=== PATIENT | male | born 1940 | race Caucasian/White ===

== ENCOUNTER 2017-01-16 19:01 | Observation (INO) | payer OTHER, BC ==
[~2017-01-16] VITALS: Ht 177.8 cm; Wt 112.5 kg
[~2017-01-16 19:01] MED LIST: ADULT LOW DOSE81 M1 PO; ADVIL,NUPRIN,M200 MG PO; ALLEGRA ALLERG180 MG PO; ALLEGRA180 MG PO; AMLODIPINE BESYL5 MG PO; ASPIR 8181 M1 PO; CIPRO500 MG PO; COLACE100 MG PO; DIOVAN80 MG PO; Ecotrin PO; FISH OIL 1,0001 EAC7 PO; FISH OIL CONC1 EACH PO; GLUCOSAMINE &1 EAC1 PO; GLUCOSAMINE &1 EACH PO; HYDROCHLOROTH12.5 M2 PO; HYDROCHLOROTH12.5 M3 PO; HYDROCHLOROTHIA25 MG PO; ISTALOL5 ML BOTH EYES; ISTALOL5 ML OP; Imdur PO; KADIAN10 MG PO; LOSARTAN POTASS50 MG PO; LOW DOSE ASPIRI81 M2 PO; LUMIGAN 0.50 DROP/2. BOTH EYES; LUMIGAN 0.50 DROP/22 BOTH EYES; Lopressor PO; MEDROL DOSEPAK4 MG PO; MOBIC7.5 MG PO; MULTIVITAMIN1 EAC2 PO; NAPROSYN500 MG PO; NORVASC5 MG PO; Nitrostat,NitroQuick SL; Norvasc PO; PRESERVISION A1 EAC2 PO; PREVACID30 MG PO; PROBIOTIC1 EAC1 PO; PYRIDIUM200 MG PO; Plavix PO; RANITIDINE HCL150 MG PO; SIMVASTATIN20 M1 PO; SIMVASTATIN20 MG PO; TIMOLOL MALEATE15 M1 BOTH EYES; TYLENOL EXTRA500 MG PO; VALIUM5 MG PO; ZOCOR20 MG PO; ZYRTEC10 M3 PO; Zantac PO; Zocor PO
[2017-01-16 19:38] LABS: EOSINOPHIL (%) 2.8 % (0-5); EOSINOPHIL COUNT 0.2 K/uL (0-0.3); HEMATOCRIT 43.9 % (38.0-50.0); IMMATURE GRANULOCYTE (%) 0.3 % (0.0-0.7); INSTRUMENT ABS NEUTROPHIL CT 4.6 K/uL; LYMPHOCYTE COUNT 1.1 K/uL (1.0-2.8); MCH 31.6 PG (29.0-34.0); MCHC 33.7 G/DL (30.0-36.0); MCV 93.8 FL (86-99); MEAN PLAT.VOLUME 10.5 uM^3 (9.0-12.4); MONOCYTE (%) 10.3 % (3-12); MONOCYTE COUNT 0.7 K/uL (0-0.8); NEUTROPHIL (%) 69.4 % (45-76); NEUTROPHIL COUNT 4.6 K/uL (1.8-6.4); PLATELET COUNT 236 K/uL (156-360); RBC DIS.WIDTH-CV 13.2 % (11.8-14.6); RBC DIS.WIDTH-SD 45.5 % (39-53); RED BLOOD COUNT 4.68 M/uL (4.00-5.50); WHITE BLOOD COUNT 6.7 K/uL (4.1-10.2)
[2017-01-16 19:58] LABS: CHLORIDE 101 mEq/L (99-109); SODIUM 138 mEq/L (136-147)
[2017-01-16 20:00] LABS: GLUCOSE 189 mg/dL (70-99)
[2017-01-16 20:01] LABS: ANION GAP 11 MEQ/L (2-14)
[2017-01-16 20:04] LABS: GFR ESTIMATE (CALCULATED) > 59 mL/min/
[2017-01-16 20:05] LABS: UREA NITROGEN (BUN) 19 mg/dL (9-23)
[2017-01-16 20:09] LABS: TROP-I INTERPRETATION NEGATIVE; TROPONIN-I 0.01 ng/mL (0.0-0.30)
[2017-01-16 21:38] LABS: ADD MIUA? YES; BILIRUBIN NEGATIVE; BLOOD MODERATE; COLOR STRAW ((YELLOW)); GLUCOSE (STRIP) >=500; KETONES NEGATIVE; LEUKOCYTES NEGATIVE; NITRITE NEGATIVE; PROTEIN (STRIP) NEGATIVE; SPECIFIC GRAVITY 1.012 (1.000-1.030); UROBILINOGEN 0.2 MG/DL (0.2-1.0)
[2017-01-16 21:40] LABS: BACTERIA NONE SEEN /HPF; EPITHELIAL CELLS RARE /HPF; MUCUS NONE SEEN /LPF; RED BLOOD CELLS TNTC /HPF (0-5); UCUL ADDED? NO; WHITE BLOOD CELLS 0-5 /HPF (0-5)
[2017-01-16] MEDS ORDERED: AMLODIPINE BESY10 MG PO (23:32)
[2017-01-16] MEDS ORDERED: LEVOTHYROXINE25 MCG PO (23:34)
[2017-01-16] MEDS ORDERED: NITROSTAT0.4 MG SL (23:35)
[2017-01-16] MEDS ORDERED: POTASSIUM CITR10 MEQ PO (23:36)
[2017-01-16] MEDS ORDERED: TYLENOL EXTRA500 MG PO (23:37)
[2017-01-16] MEDS ORDERED: LUMIGAN 0.50 DROP/22 BOTH EYES (23:38)
[2017-01-17] MEDS ORDERED: TAMSULOSIN HCL0.4 MG PO (00:17)
[2017-01-17 00:27] VITALS: BP 161/78
[2017-01-17 07:07] VITALS: BP 141/68
[2017-01-17 12:22] VITALS: BP 117/56
[2017-01-17 14:18] VITALS: BP 142/67
[2017-01-17 16:57] VITALS: BP 162/78
[2017-01-17] MEDS ORDERED: ENDOCET 5-3251 EACH PO (17:57)
[2017-01-17] MEDS ORDERED: BACTRIM,SEPT1 TABLET PO (17:58)
== END 2017-01-17 19:13 | disposition home or self-care (01) ==
LOC: EME → EDBD 19:01 → EDOF 22:56 → 5WEST 22:56 → EDOF 22:56 → 5WEST 01-17 00:05
PROVIDERS: Emergency Medicine
PROC: 0T778DZ Dilation of Left Ureter with Intraluminal Device, Via Natural or Artificial Opening Endoscopic (ICD-10-PCS; principal; 2017-01-17)
DX: N20.2 Calculus of kidney with calculus of ureter (principal); I25.10 Atherosclerotic heart disease of native coronary artery without angina pectoris; I10 Essential (primary) hypertension; E11.9 Type 2 diabetes mellitus without complications; G47.33 Obstructive sleep apnea (adult) (pediatric); E03.9 Hypothyroidism, unspecified; E78.5 Hyperlipidemia, unspecified; M19.90 Unspecified osteoarthritis, unspecified site; E66.9 Obesity, unspecified; Z95.5 Presence of coronary angioplasty implant and graft; N40.0 Benign prostatic hyperplasia without lower urinary tract symptoms; I25.82 Chronic total occlusion of coronary artery; H40.9 Unspecified glaucoma; Z68.35 Body mass index [BMI] 35.0-35.9, adult; G89.4 Chronic pain syndrome
CPT/HCPCS: 71010; 74176; 74420; 80048; 81003; 83880; 84484; 85025; 93005; 99281; 99285; C1876; G0378; J1100; J1200; J1580; J1644; J1885; J2270; J2405; J3010; J7030

== ENCOUNTER 2017-03-12 17:05 | Observation (INO) | payer OTHER, BC ==
[~2017-03-12] VITALS: Ht 177.8 cm; Wt 110.5 kg
[~2017-03-12 17:05] MED LIST changes: +AMLODIPINE BESY10 MG PO; +BACTRIM,SEPT1 TABLET PO; +ENDOCET 5-3251 EACH PO; +LEVOTHYROXINE25 MCG PO; +NITROSTAT0.4 MG SL; +POTASSIUM CITR10 MEQ PO; +TAMSULOSIN HCL0.4 MG PO
[2017-03-12 18:38] LABS: MCH 31.5 PG (29.0-34.0); MCHC 33.3 G/DL (30.0-36.0); MCV 94.4 FL (86-99); MEAN PLAT.VOLUME 10.7 uM^3 (9.0-12.4); PLATELET COUNT 233 K/uL (156-360); RBC DIS.WIDTH-CV 13.1 % (11.8-14.6); RBC DIS.WIDTH-SD 45.5 % (39-53); RED BLOOD COUNT 4.45 M/uL (4.00-5.50); WHITE BLOOD COUNT 6.8 K/uL (4.1-10.2)
[2017-03-12 18:45] LABS: CHLORIDE 102 mEq/L (99-109); POTASSIUM 4.1 mEq/L (3.7-5.4); SODIUM 139 mEq/L (136-147)
[2017-03-12 18:47] LABS: GLUCOSE 139 mg/dL (70-99)
[2017-03-12 18:48] LABS: ANION GAP 9 MEQ/L (2-14); CARBON DIOXIDE (BICARBONATE) 33.3 MEQ/L (20-31)
[2017-03-12 18:51] LABS: GFR ESTIMATE (CALCULATED) > 59 mL/min/
[2017-03-12 18:52] LABS: UREA NITROGEN (BUN) 17 mg/dL (9-23)
[2017-03-12 19:00] LABS: TROP-I INTERPRETATION NEGATIVE; TROPONIN-I < 0.01 ng/mL (0.0-0.30)
[2017-03-12] MEDS ORDERED: GLUCOPHAGE500 MG PO (19:14)
[2017-03-12 21:54] VITALS: BP 163/80
[2017-03-12 22:16] LABS: POINT-OF-CARE METER ID UU14162513
[2017-03-13 03:20] VITALS: BP 136/72
[2017-03-13 08:20] LABS: TROP-I INTERPRETATION NEGATIVE; TROPONIN-I < 0.01 ng/mL (0.0-0.30)
[2017-03-13 08:26] VITALS: BP 132/65; BP 140/62
[2017-03-13 08:49] VITALS: BP 160/72
[2017-03-13 08:49] LABS: POINT-OF-CARE METER ID UU14162513
[2017-03-13 11:46] VITALS: BP 158/68
[2017-03-13 12:56] LABS: POINT-OF-CARE METER ID UU14162513
[2017-03-13] MEDS ORDERED: ADVAIR 100/501 DISK IH (15:00)
== END 2017-03-13 15:51 | disposition home or self-care (01) ==
LOC: EME 17:05 → 5WEST 20:50 → EDOF 20:50 → 5WEST 21:43
PROVIDERS: Emergency Medicine; Internal Medicine; Physician Assistant Medical; Student in an Organized Health Care Education/Training Program
DX: R05 Cough (principal); R55 Syncope and collapse; R42 Dizziness and giddiness; M79.89 Other specified soft tissue disorders; I25.10 Atherosclerotic heart disease of native coronary artery without angina pectoris; I25.82 Chronic total occlusion of coronary artery; I10 Essential (primary) hypertension; E78.5 Hyperlipidemia, unspecified; E11.9 Type 2 diabetes mellitus without complications; G47.33 Obstructive sleep apnea (adult) (pediatric); E66.9 Obesity, unspecified; Z68.34 Body mass index [BMI] 34.0-34.9, adult; M19.90 Unspecified osteoarthritis, unspecified site; E03.9 Hypothyroidism, unspecified; I45.10 Unspecified right bundle-branch block; F17.290 Nicotine dependence, other tobacco product, uncomplicated; N40.0 Benign prostatic hyperplasia without lower urinary tract symptoms
CPT/HCPCS: 71020; 80048; 82803; 82948; 83605; 83880; 84484; 85027; 87040; 93005; 99281; 99285; G0378; J1644; J1815